=== PATIENT | male | born 1985 | race Caucasian/White ===

== ENCOUNTER 2020-10-13 18:39 | Emergency (ER) | payer OTHER, SELFPAY ==
[2020-10-13 18:57] VITALS: BP 122/85; PULSE 66; RESP 15; TEMP 36.4; O2SAT 100
--- NOTE | 2020-10-13 20:51 | ED.WOUNDLAC ---
HPI - Wound/Laceration General Chief Complaint: Wound/Laceration Stated Complaint: toe lac Time Seen by Provider: 10/13/20 19:24 Source: patient Mode of arrival: ambulatory Limitations: no limitations History of Present Illness HPI narrative: Patient is a 34-year-old male who presents with laceration to left great toe. Patient reports he was on deck at home when cutting foot, unsure of what he cut foot on. Bleeding controlled with dressing. Patient denies significant history. Unknown when last tetanus. Patient denies all other complaints at this time. Related Data Home Medications Medication Instructions Recorded Confirmed No Home Medications 10/13/20 10/13/20 Allergies Allergy/AdvReac Type Severity Reaction Status Date / Time No Known Drug Allergies Allergy Verified 10/13/20 20:08 Review of Systems Review of Systems: Narrative: CONSTITUTIONAL: Denies fever, chills, or sweats. EYES: Denies visual changes, redness, or discharge. ENT: Denies rhinorrhea, congestion, sore throat, or otalgia. CARDIOVASCULAR: Denies chest pain, palpitations, or edema. RESPIRATORY: Denies cough or dyspnea. GASTROINTESTINAL: Denies abdominal pain, nausea, vomiting, or diarrhea. GENITOURINARY: Denies dysuria or hematuria. SKIN: Laceration left great toe MUSCULOSKELETAL: Denies back pain, joint pain, or myalgia. NEUROLOGIC: Denies headache, numbness, dizziness, or weakness. PSYCHIATRIC: Denies anxiety or depression. FOR[facility]LY [facility] Social History Social History (Updated 10/13/20 @ 20:55 by ROSELIA Horan) Smoking status: Never smoker Alcohol intake: current Substance use: never Living arrangements: with family Occupation/Education: occupation Gender identity (if verbalized by the patient): Male Comments At the time of signature, I have reviewed and agree with nursing past medical, surgical, social, and family history unless otherwise noted. Please see nursing chart for further information. There is no relevant family history pertinent to the presenting complaint. Exam Narrative: Exam Narrative: GENERAL: Well-appearing, well-nourished, and in no acute distress. HEAD: Normocephalic, atraumatic. EYES: EOMI. No redness or drainage. Conjunctiva are normal. ENT: Mucous membranes pink and moist CHEST: No respiratory distress. HEART: Regular rate and rhythm. No murmur appreciated. Normal peripheral pulses. MUSCULOSKELETAL: No bony tenderness. EXTREMITIES: Normal range of motion. No edema. SKIN: Approximate 3 cm linear laceration to the plantar side of left great toe NEURO: No focal deficits. Alert and oriented x3. Gait steady. PSYCH: Normal affect. No signs of depression or anxiety. Course Vital Signs Vital signs: Vital Signs Temperature 36.4 C L 10/13/20 18:57 Pulse Rate 66 10/13/20 18:57 Respiratory Rate 15 10/13/20 18:57 Blood Pressure 122/85 10/13/20 18:57 Pulse Oximetry 100 10/13/20 18:57 Temperature 36.4 C L 10/13/20 18:57 Pulse Rate 66 10/13/20 18:57 Respiratory Rate 15 10/13/20 18:57 Blood Pressure 122/85 10/13/20 18:57 Pulse Oximetry 100 10/13/20 18:57 Reviewed Procedures Laceration Laceration 1: Date: 10/13/20 Time: 20:57 Site: lower extremity Side (If applicable): left Size (cm): 3 Description: linear Local Anesthetic: lidocaine 1% Amount of anesthesia used (mL): 4 Pre-repair: irrigated ====== Skin Level ====== Skin layer closed with: nylon Size (cm): 5-0 Number of sutures: 8 Technique: simple, interrupted ====== Subcutaneous Layer ====== ====== Muscle Layer ====== ====== Tendon Layer ====== Dressing: Steri-Strips used over sutures, Telfa and Coban for dressing. MDM - Wound/Laceration MDM Narrative Medical decision making narrative: Patient's toe sutured, dressing applied. Discussed with patient wound care as well as suture removal. Patient an
[2020-10-13] MEDS: TETANUS,DIPHTHERIA,AC PERTUSSIS ADULT (0.5 ML) BOOSTRIX IM (20:55)
== END 2020-10-13 22:00 | disposition home or self-care (01) ==
PROVIDERS: Emergency Provider Nurse Practitioner; PCP Family Medicine Adolescent Medicine
DX: S91.112A Laceration without foreign body of left great toe without damage to nail, initial encounter (principal); Z23 Encounter for immunization; W26.9XXA Contact with unspecified sharp object(s), initial encounter
CPT/HCPCS: 12002; 90471; 90715; 99282